=== PATIENT | female | born 1945 | race Caucasian/White ===

== ENCOUNTER 2016-05-18 18:33 | Inpatient (IN) | payer OTHER ==
[~2016-05-18] VITALS: Ht 162.6 cm; Wt 69.9 kg
[2016-05-18 18:39] VITALS: BP 102/66
[2016-05-18] MEDS ORDERED: NACL 0.9% 1,000 ML IV ONE (18:40)
--- NOTE | 2016-05-18 18:41 | NUR ---
PT [facility]IB[facility]. EMS STATES PT WENT TO THE BATHROOM AND ROOMMATE FOUND PT SITTING ON THE FLOOR AND LETHARGIC. PER EMS PT VOMITTED FRESH BLOOD AND PT IS PASSING OUT BLACK TARRY STOOL.PT WAS HYPOTENSIVE W/ A BP OF 80/40. PT HAS A HX OF ATRIAL FIB AND CURRENTLY ON BLOOD THINNER.PT IS AAOX3.BODY CHECKED DONE;SKIN IS INTACT W/ HEMATOMA ON RIGHT EYE AND RT FOREHEAD.W/ DRY WOUND ON BOTH ARMS.SIDERAILS UP;SAFETY PRECAUTION INSTITUTED.DR SOSA AT BEDSIDE.WILL CONTINUE TO MONITOR PT.
[2016-05-18] MEDS ORDERED: NACL 0.9% 500 ML IV ONE (18:50)
--- NOTE | 2016-05-18 18:50 | NUR ---
MEDTECH AT BEDSIDE
--- NOTE | 2016-05-18 19:04 | NUR ---
PROCESS DEVELOPER AT BEDSIDE
--- NOTE | 2016-05-18 19:13 | NUR ---
REPORT RECEIVED FROM BRIGITTE BOLIVAR
[2016-05-18 19:14] LABS: BASOPHILS # (AUTO) 0.4 K/uL (0.00-0.22); BASOPHILS % (AUTO) 2.4 % (0.0-2.0); EOSINOPHILS # (AUTO) 0.3 K/uL (0-0.4); EOSINOPHILS % (AUTO) 1.9 % (0.0-4.0); HEMATOCRIT 27.3 % (36-48); HEMOGLOBIN 8.8 g/dL (12.0-16.0); LYMPHOCYTES # (AUTO) 2.6 K/uL (2.5-16.5); LYMPHOCYTES % (AUTO) 17.7 % (20.5-51.1); MEAN CORPUSCULAR HEMOGLOBIN 31 pg (27-31); MEAN CORPUSCULAR HGB CONC 32 g/dL (33-37); MEAN CORPUSCULAR VOLUME 96 fL (80-94); MONOCYTES # (AUTO) 0.4 K/uL (0.8-1.0); MONOCYTES % (AUTO) 2.5 % (1.7-9.3); NEUTROPHILS # (AUTO) 11.1 K/uL (1.8-7.7); NEUTROPHILS % (AUTO) 75.5 % (42.2-75.2); PLATELET COUNT (AUTO) 193 K/uL (140-450); RED BLOOD CELL COUNT(AUTO) 2.85 MIL/uL (4.20-5.40); RED CELL DISTRIBUTION WIDTH 13.7 % (11.6-13.7); WHITE BLOOD COUNT (AUTO) 14.8 K/uL (4.8-10.8)
--- NOTE | 2016-05-18 19:24 | NUR ---
Dr. Ken evaluating patient at bedside.
--- NOTE | 2016-05-18 19:30 | NUR ---
ASSESSMENT OF PT. PT A/O, STATES SHE FEELS WEAK. PT ABLE TO DISCUSS HER MEDICAL HX AND HOW SHE HAS FELT THE LAST TWO DAYS.
[2016-05-18 19:33] LABS: PARTIAL THROMBOPLASTIN TIME 41.7 secs (22-35.6)
[2016-05-18 19:40] LABS: ALBUMIN 3.3 g/dL (3.4-5.0); ANION GAP 18.5 (8-16); CALCIUM 8.3 mg/dL (8.5-10.1); CARBON DIOXIDE 20.8 mmol/L (21-32); CREATININE 1.4 mg/dL (0.6-1.3); POTASSIUM 4.3 mmol/L (3.5-5.1); TOTAL BILIRUBIN 0.3 mg/dL (0.0-1.0); TOTAL PROTEIN, SERUM 6.2 g/dL (6.4-8.2)
--- NOTE | 2016-05-18 19:40 | NUR ---
BENDER PLACED. NO URINE OUTPUT AT THIS TIME. DR BALL MADE AWARE.
[2016-05-18 19:49] LABS: INR 5.4 (0.8-1.2); PROTHROMBIN TIME 53.4 secs (10.8-13.4)
--- NOTE | 2016-05-18 19:50 | NUR ---
DR BALL NOTIFIED OF CRITICAL LABS
--- NOTE | 2016-05-18 19:50 | NUR ---
PT TO CT VIA E[facility]IDA IN STABLE CONDITION
[2016-05-18 19:51] LABS: LACTIC ACID 4.1 mmol/L (0.4-2.0)
--- NOTE | 2016-05-18 20:04 | NUR ---
PT RETURN FROM CT
--- NOTE | 2016-05-18 20:15 | NUR ---
PT RETURNED FROM CT IN STABLE CONDITION
[2016-05-18] MEDS ORDERED: cefTRIAXone 2,000 MG in DEXTROSE 5% 100 ML IV ONE (20:25)
--- NOTE | 2016-05-18 20:26 | NUR ---
PT RETURNED FROM CT AND HAS LOW BP. DR BALL NOTIFIED AND 2ND NS BOLUS OF 500 WIDE OPEN STARTED. PT ANGELA. WELL. STILL NO URINE OUTPUT FOR PT.
--- NOTE | 2016-05-18 21:00 | NUR ---
ABX STARTED, PT A/O, APPROPRIATE AT THIS TIME.
[2016-05-18] MEDS ORDERED: cefTRIAXone 2,000 MG VIAL ONE (21:01)
[2016-05-18] MEDS ORDERED: LORazepam 2 MG/ML VIAL IVP PRN (21:05)
--- NOTE | 2016-05-18 21:05 | NUR ---
BP 84/35, DR BALL AWARE.
--- NOTE | 2016-05-18 21:32 | NUR ---
NO URINE OUTPUT AT THIS TIME.
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
--- NOTE | 2016-05-18 22:48 | NUR ---
REPORT GIVEN TO BRIGITTE MARTINEZ. TELE.
--- NOTE | 2016-05-18 22:48 | NUR ---
APatient will be admitted to care of DOVE. Admited to TELE. Will go to room 121B. Belongings list completed. Report to BRIGITTE MARTINEZ.
[2016-05-18] MEDS: NACL 0.9% 1,000 ML IV SCH (23:25)
[2016-05-18 23:33] VITALS: BP 111/92
--- NOTE | 2016-05-18 23:45 | NUR ---
CALL FROM MARITO IN LAB. CIRITCAL RESULT, PTS LACTIC ACID INCREASED TO 4.3. WILL MAKE MD AWARE.
--- NOTE | 2016-05-18 23:49 | NUR ---
PAGED MD BERNABE SENIOR ADVISORY FOR MD DOVE TO MAKE DAUGHERTY OF CRITICAL LAB RESULT. WAITING FOR CALL BACK.
--- NOTE | 2016-05-18 23:51 | NUR ---
MD BERNABE MADE AWARE OF INCREASED 2ND DRAW OF LACTIC ACID 4.3. NO ORDERS RECEIVED.
[2016-05-19] VITALS: BP 121/83
--- NOTE | 2016-05-19 00:25 | NUR ---
RADIOLOGY RESIDENT INFORMED ME THAT HR WAS ELEVATED 170'S. PT DENIED PAIN OR DISCOMFORT WHILE OBTAINING VS, THEN PT C/O NAUSEA. PT VOMITED ABOUT 300-400 DARK RED EMESIS. RADIOLOGY RESIDENT INFORMED ME THAT HR WENT UP TO 228.
--- NOTE | 2016-05-19 00:32 | NUR ---
PAGED MD BERNABE SPORTS JOURNALIST FOR MD DOVE. WAITING FOR CALL BACK. VS: HR 210, BP 121/83, O2 100% ON 2L O2 NC, RR 28, TEMP 99.
--- NOTE | 2016-05-19 00:35 | NUR ---
SPOKE WITH MD BERNABE, MADE AWARE OF SITUATION AND PTS HEART RATE AND VS. MD ORDERED STAT CBC. 1 UNIT FRESH FROZEN PLASMA. WILL FOLLOW UP.
[2016-05-19] MEDS: ONDANSETRON 4 MG/2 ML VIAL IVP PRN ×2 (00:53→19:42)
--- NOTE | 2016-05-19 01:01 | NUR ---
HR SUSTAINED BETWEEN 180-210. PAGED MD BERNABE HYDROGEN PLANT OPERATOR FOR MD DOVE TO MAKE AWARE. WAITING FOR CALL BACK.
--- NOTE | 2016-05-19 01:10 | NUR ---
SPOKE WITH MD BERNABE. MD AWARE OF SUSTAINED HR OF 180-210 SINCE PT VOMITED. MD ORDERED STAT EKG AND TROPONIN. WILL FOLLOW UP AND REPORT RESULTS WHEN AVAILABLE.
--- NOTE | 2016-05-19 01:19 | NUR ---
EKG ABNORMAL SHOWING A-FIB WITH RVR AT 184 BPM, ST AND T WAVE ABNORMALITIES. WAITING FOR CBC AND TROPONIN RESULTS TO REPORT RESULTS TO .
[2016-05-19 01:27] LABS: BASOPHILS # (AUTO) 0.3 K/uL (0.00-0.22); MONOCYTES # (AUTO) 0.7 K/uL (0.8-1.0)
--- NOTE | 2016-05-19 01:28 | NUR ---
VS: TEMP 98.7, O2 100% ON 2L O2 NC, HR 182, BP 101/50. PT AOX4, DENIES PAIN AND NAUSEA AT THIS TIME. NO SOB, NO SIGNS OF DISTRESS. IV SITES ASYMPTOMATIC, INTACT, IVF RUNNING TO LT AC. SAFETY MEASURES IN PLACE. CALL LIGHT WITHIN REACH. WILL CONTINUE TO MONITOR.
[2016-05-19 01:32] LABS: BASOPHILS % (AUTO) 1.7 % (0.0-2.0); EOSINOPHILS # (AUTO) 0.3 K/uL (0-0.4); EOSINOPHILS % (AUTO) 1.7 % (0.0-4.0); HEMATOCRIT 22.4 % (36-48); LYMPHOCYTES # (AUTO) 2.7 K/uL (2.5-16.5); LYMPHOCYTES % (AUTO) 17.4 % (20.5-51.1); MEAN CORPUSCULAR HEMOGLOBIN 31 pg (27-31); MEAN CORPUSCULAR HGB CONC 33 g/dL (33-37); MEAN CORPUSCULAR VOLUME 95 fL (80-94); MONOCYTES % (AUTO) 4.7 % (1.7-9.3); NEUTROPHILS # (AUTO) 11.3 K/uL (1.8-7.7); NEUTROPHILS % (AUTO) 74.5 % (42.2-75.2); PLATELET COUNT (AUTO) 187 K/uL (140-450); RED BLOOD CELL COUNT(AUTO) 2.35 MIL/uL (4.20-5.40); RED CELL DISTRIBUTION WIDTH 13.7 % (11.6-13.7)
[2016-05-19 01:49] LABS: HEMOGLOBIN 7.3 g/dL (12.0-16.0); WHITE BLOOD COUNT (AUTO) 15.3 K/uL (4.8-10.8)
--- NOTE | 2016-05-19 01:58 | NUR ---
PAGED MD BERNABE TO MAKE AWARE OF LAB AND EKG RESULTS. WAITING FOR CALL BACK.
--- NOTE | 2016-05-19 02:04 | NUR ---
SPOKE WITH MD BERNABE. MD MADE AWARE OF H&H AND EKG RESULT. MD ORDERED 5MG LOPRESSOR IVP, ONE UNIT PRBC, KEEP PT NPO, AND HOLD FFP. NO CHANGE IN IVF RATE. WILL COMPLETE ORDERS AND FOLLOW UP.
[2016-05-19] MEDS ORDERED: METOPROLOL 5 MG/5 ML VIAL IVP ONE (02:05)
--- NOTE | 2016-05-19 02:35 | NUR ---
VS: HR 132, BP 93/60 O2 100% ON 2L NC, RR 24, TEMP 98.3. NO SOB, NO SIGNS OF DISTRESS. PT IS AOX4, ABLE TO FOLLOW COMMANDS. PT DENIES ANY PAIN, SOB, NAUSEA, CHEST PAIN, OR DISCOMFORT AT THIS TIME. IV SITE ASYMPTOMATIC, INTACT, PATENT, IVF RUNNING. SAFETY MEASURES IN PLACE. CALL LIGHT WITHIN REACH. WILL CONTINUE TO MONITOR.
--- NOTE | 2016-05-19 03:10 | NUR ---
STARTED TRANSFUSION OF 1 UNIT PRBC PER MD ORDER. VS STABLE. NO SOB, NO SIGNS OF DISTRESS. IV SITES ASYMPTOMATIC, INTACT, PATENT, IVF AND BLOOD RUNNING. PT ON 2L O2 NC. PT DENIES PAIN OR DISCOMFORT AT THIS TIME.
--- NOTE | 2016-05-19 03:25 | NUR ---
VS STABLE. NO SOB, NO SIGNS OF DISTRESS. IV SITES ASYMPTOMATIC, INTACT, PATENT, IVF AND BLOOD RUNNING. PT ON 2L O2 NC. PT DENIES PAIN OR DISCOMFORT AT THIS TIME. PLAN OF CARE DISCUSSED WITH PT. SAFETY MEASURES IN PLACE. CALL LIGHT WITHIN REACH. WILL CONTINUE TO MONITOR.
[2016-05-19 04:00] VITALS: BP 95/68
--- NOTE | 2016-05-19 04:30 | NUR ---
VS STABLE. PT WITH NO OUTPUT IN BENDER SINCE ADMISSION, REPOSITIONED BENDER, NO OUTPUT. STRAIGHT CATHED PATIENT, 450 ML OUTPUT. REINSERTED BENDER, PT WITH OUTPUT. PT TOLERATED WELL. NO SOB, NO SIGNS OF DISTRESS IV SITES ASYMPTOMATIC, INTACT, IVF AND BLOOD RUNNING. PT DENIES PAIN OR DISCOMFORT AT THIS TIME. PT AOX4. PT ON 2L O2 NC. PLAN OF CARE DISCUSSED WITH PT. SAFETY MEASURES IN PLACE. CALL LIGHT WITHIN REACH. WILL CONTINUE TO MONITOR.
--- NOTE | 2016-05-19 05:50 | NUR ---
TRANSFUSION OF 1 UNIT PRBC DONE, PT TOLERATED WELL. NO ADV REACTIONS NOTED. VS STABLE. PT ON 3L O2 NC. IV SITES ASYMPTOMATIC, PATENT, INTACT, IVF RUNNING. PT DENIES PAIN, NAUSEA, OR DISCOMFORT AT THIS TIME. PLAN OF CARE DISCUSSED WITH PT. SAFETY MEASURES IN PLACE. CALL LIGHT WITHIN REACH. WILL CONTINUE TO MONITOR.
--- NOTE | 2016-05-19 07:15 | NUR ---
RECEIVED PATIENT REPORT. PATIENT AWAKE, ALERT AND ORIENTED. NO S/S OF DISTRESS NOTED. PATIENT DENIES PAIN. PATIENT ON 3L O2. NO ACTIVE VOMITING AT THIS MOMENT. IV LINE NOTED TO THE RIGHT AC SALINE LOCKED. IV TO THE LEFT AC INTACT WITH IVF INFUSING WELL. PATIENT ON TELE MONITORING. BED LOWERED WITH CALL LIGHT WITHIN REACH. WILL CONTINUE TO MONITOR
--- NOTE | 2016-05-19 07:18 | NUR ---
ENDORSED PT IN STABLE CONDITION TO NATHAN Mon RN. ALL NEEDS HAVE BEEN MET AT THIS TIME.
[2016-05-19 07:53] LABS: BASOPHILS # (AUTO) 0.1 K/uL (0.00-0.22); BASOPHILS % (AUTO) 1.1 % (0.0-2.0); EOSINOPHILS # (AUTO) 0.2 K/uL (0-0.4); EOSINOPHILS % (AUTO) 1.7 % (0.0-4.0); HEMATOCRIT 23.9 % (36-48); HEMOGLOBIN 7.8 g/dL (12.0-16.0); LYMPHOCYTES # (AUTO) 2.4 K/uL (2.5-16.5); LYMPHOCYTES % (AUTO) 17.4 % (20.5-51.1); MEAN CORPUSCULAR HEMOGLOBIN 30 pg (27-31); MEAN CORPUSCULAR HGB CONC 33 g/dL (33-37); MEAN CORPUSCULAR VOLUME 93 fL (80-94); MONOCYTES # (AUTO) 0.5 K/uL (0.8-1.0); MONOCYTES % (AUTO) 3.9 % (1.7-9.3); NEUTROPHILS # (AUTO) 10.4 K/uL (1.8-7.7); NEUTROPHILS % (AUTO) 75.9 % (42.2-75.2); PLATELET COUNT (AUTO) 158 K/uL (140-450); RED BLOOD CELL COUNT(AUTO) 2.58 MIL/uL (4.20-5.40); RED CELL DISTRIBUTION WIDTH 14.6 % (11.6-13.7); WHITE BLOOD COUNT (AUTO) 13.6 K/uL (4.8-10.8)
[2016-05-19 08:00] VITALS: BP 107/71
--- NOTE | 2016-05-19 08:30 | NUR ---
PATIENT HAS BEEN SCREENED AND CATEGORIZED MODERATE NUTRITION RISK. PATIENT WILL BE SEEN WITHIN 3-5 DAYS OF ADMISSION. 05/21/16-05/23/[address]
[2016-05-19 08:34] LABS: ALBUMIN 2.8 g/dL (3.4-5.0); ANION GAP 14.5 (8-16); CALCIUM 7.7 mg/dL (8.5-10.1); CARBON DIOXIDE 20.8 mmol/L (21-32); CREATININE 1.2 mg/dL (0.6-1.3); MAGNESIUM 1.7 mg/dL (1.8-2.4); POTASSIUM 4.3 mmol/L (3.5-5.1); TOTAL BILIRUBIN 0.3 mg/dL (0.0-1.0); TOTAL PROTEIN, SERUM 5.3 g/dL (6.4-8.2)
[2016-05-19] MEDS: NACL 0.9% 1,000 ML IV SCH ×2 (08:50→17:03)
--- NOTE | 2016-05-19 08:50 | NUR ---
PATIENT HAD A SMALL AMOUNT OF LIQUID BLACK TARRY STOOL
--- NOTE | 2016-05-19 09:37 | NUR ---
SPOKE WITH DR DOVE AND INFORMED HER ABOUT PATIENT'S BLOODY STOOL THIS MORNING AND THE HEMOGLOBIN AND HEMATOCRIT LEVEL POST TRANSFUSION. ALSO INFORMED ABOUT THE PATIENT'S BUN LEVEL OF 87. ORDERS TO TRANSFUSE 2 UNITS OF PRBC
--- NOTE | 2016-05-19 11:00 | NUR ---
CM NOTE INITIAL REVIEW SENT TO [facility] FAX# [phone] ATTN: LIU Geiger PH# [phone]
[2016-05-19] MEDS ORDERED: MAGNESIUM CHLORIDE 64 MG TABEC PO SCH (11:37)
--- NOTE | 2016-05-19 11:50 | NUR ---
FIRST UNIT OF FFP TRANSFUSION INITIATED
[2016-05-19 12:00] VITALS: BP 107/57
[2016-05-19] MEDS ORDERED: FUROSEMIDE 40 MG/4 ML VIAL IVP SCH (12:00)
--- NOTE | 2016-05-19 12:30 | NUR ---
FFP TRANSFUSION STILL IN PROGRESS. PATIENT ASLEEP. NO S/S OF DISTRESS NOTED
[2016-05-19] MEDS ORDERED: PANTOPRAZOLE 40 MG INJ VIAL IVP SCH (12:58)
[2016-05-19] MEDS ORDERED: PHYTONADIONE 10 MG/ML AMP SUBQ SCH (13:00)
--- NOTE | 2016-05-19 13:45 | NUR ---
FFP TRANSFUSION DONE. NO S/S OF DISTRESS NOTED. VITAL SIGNS WITHIN NORMAL LIMITS
--- NOTE | 2016-05-19 14:00 | NUR ---
PATIENT SEEN BY PHYSICAL THERAPIST
[2016-05-19] MEDS: FERRIC GLUCONATE 125 MG in NACL 0.9% 100 ML IV SCH (14:57)
[2016-05-19] MEDS: SENNA 8.6 MG TAB PO SCH ×2 (14:57→18:32)
[2016-05-19] MEDS: LACTULOSE 20 GM/30 ML UDC PO SCH ×4 (14:57→21:17)
[2016-05-19 16:00] VITALS: BP 123/64
[2016-05-19 17:16] LABS: APPEARANCE,URINE CLEAR (CLEAR); BILIRUBIN,URINE NEGATIVE (NEGATIVE); BLOOD, URINE 2+ (NEGATIVE); LEUKOCYTE ESTERASE ,URINE NEGATIVE (NEGATIVE); NITRITE, URINE NEGATIVE (NEGATIVE); PH,URINE 5.5 (5.0-9.0); PROTEIN,URINE NEGATIVE (NEGATIVE); UGLUCOSE NEGATIVE (NEGATIVE); UROBILINOGEN,URINE 0.2 EU/dL (0.2 - 1)
[2016-05-19 17:25] LABS: COLOR,URINE STRAW (YELLOW)
--- NOTE | 2016-05-19 17:25 | NUR ---
SECOND UNIT OF FFP TRANSFUSION INITIATED
[2016-05-19 17:28] LABS: BACTERIA,URINE RARE /HPF (None Seen); RBC,URINE 3-10 (FEW) /HPF (0-5); SQUAMOUS EPITHELIAL CELL,UR None Seen /LPF (0-3 (FEW)); WBC,URINE 0-5 (RARE) /HPF (0-5)
[2016-05-19] MEDS ORDERED: BOWEL EVACUANT DRINK 4,000 ML PDS PO SCH (18:00)
--- NOTE | 2016-05-19 18:00 | NUR ---
SECOND UNIT OF FFP TRANSFUSION STILL IN PROGRESS. NO S/S OF DISTRESS NOTED
--- NOTE | 2016-05-19 18:34 | NUR ---
PATIENT VOMITED 300ML OF COFFEE GROUND EMESIS AFTER TAKING LACTULOSE. PATIENT STATES THE MEDICATIONS WAS "ICKY"
--- NOTE | 2016-05-19 18:45 | NUR ---
SECOND UNIT OF FFP TRANSFUSION DONE
--- NOTE | 2016-05-19 19:15 | NUR ---
PAGED DR DOVE TO REPORT ABOUT THE PATIENT'S EPISODE OF VOMITING AND THE SUDDEN INCREASE OF PATIENT'S HEART RATE. WAITING FOR CALL BACK
--- NOTE | 2016-05-19 19:23 | NUR ---
RECEIVED PT REPORT FROM NATHAN Esteves RN AT BEDSIDE FOR CONTINUITY OF CARE. PT NOTED STABLE.
--- NOTE | 2016-05-19 19:27 | NUR ---
SHIFT ASSESSMENT DONE AT THIS TIME. PT HEART RATE NOTED ELEVATED AT 180'S-190'S, DR. SRINIVASA MAK. PT IS A/O X4, ABLE TO VERBALIZE NEEDS AND FOLLOW COMMANDS. ALL OTHER VITAL SIGNS ARE STABLE, PT ON 3L VIA NASAL CANNULA, OXYGEN SATURATION AT 100%. NO SOB NOTED. PT DENIES NAUSEA AND VOMITING AT THIS TIME. ALSO DENIES CHEST PAIN OR FEELING SOB. LUNG SOUNDS ARE CLEAR, BOWEL SOUNDS ACTIVE. IV ACCESS NOTED TO LEFT AC #20G, PATENT AND INTACT. ALSO RT AC #22G, PATENT AND INTACT. NOTED PT TO HAVE MULTIPLE BRUISES TO BUE AND SMALL DRY SCABS TO BOTH LT AND RT FA. ALL OTHER SKIN INTACT. NO SWELLING NOTED. SCD'S IN PLACE. DISCUSSED PLAN OF CARE WITH PT, VERBALIZED UNDERSTANDING. ALL NEEDS MET. WILL CONTINUE TO MONITOR. SAFETY PRECAUTIONS IMPLEMENTED.
--- NOTE | 2016-05-19 19:30 | NUR ---
ENDORSED CONTINUITY OF CARE TO THE NIGHT NURSE
--- NOTE | 2016-05-19 19:33 | NUR ---
SPOKE WITH DR BERNABE ON THE PHONE AND REPORTED ABOUT THE PATIENT'S HEART RATE AND VOMITING. DR BERNABE ORDERED 5MG LOPRESSOR IV X 1
--- NOTE | 2016-05-19 19:34 | NUR ---
PER AM SHIFT NURSE DR. SRINIVASA ARNETT AWARE OF PT HR IN 180'S. NEW ORDER RECEIVED. WILL ADMINISTER PER ORDERS, SEE eMAR.
--- NOTE | 2016-05-19 19:42 | NUR ---
PT FEELING NAUSEATED, ADMINISTERED ZOFRAN PER ORDERS, SEE eMAR.
--- NOTE | 2016-05-19 19:44 | NUR ---
PT RESP ASSESSMENT DONE, PT ON 3LPM NC SP02 100%, NO SOB OR RESP DISTRESS NOTED. HHNTX NOT INDICATED AT THIS TIME.
[2016-05-19] MEDS ORDERED: METOPROLOL 5 MG/5 ML VIAL IVP SCH (19:45)
--- NOTE | 2016-05-19 19:56 | NUR ---
ADMINISTERED PT IVP METOPROLOL PER ORDERS, SEE eMAR.
[2016-05-19 20:00] VITALS: BP 123/78
[2016-05-19] MEDS: PANTOPRAZOLE 40 MG TABEC PO SCH (21:17)
[2016-05-19] MEDS: ACETAMINOPHEN 325 MG TAB PO PRN (21:51)
[2016-05-19] MEDS ORDERED: MAGNESIUM CITRATE 300 ML BTL PO SCH (22:00)
--- NOTE | 2016-05-19 22:00 | NUR ---
RESTARTED NEW IV TO LEFT FA, OLD LEFT AC IV LEAKING.
--- NOTE | 2016-05-19 22:10 | NUR ---
PAGED DR. Dirk FITZGERALD TO MAKE AWARE OF PT NON COMPLIANT WITH BOWEL EVAC. FOR TOMORROW'S PROCEDURE.
--- NOTE | 2016-05-19 22:45 | NUR ---
STARTED PT ON FIRST UNIT OF PRBC'S.
--- NOTE | 2016-05-19 23:00 | NUR ---
NO REACTION NOTED TO BLOOD TRANSFUSION. VSS. PT DENIES N/V/D, AND CP. NO SOB NOTED.
--- NOTE | 2016-05-19 23:43 | NUR ---
PAGED DR. BERNABE TO MAKE AWARE OF PT HR STILL IN 150-160'S.
--- NOTE | 2016-05-19 23:54 | NUR ---
MADE DR. BERNABE AWARE OF PT LOOKS PALE, HAD DARK LARGE LOOSE STOOL AND LATEST VITAL SIGNS, HR RATE STILL IN 150-160'S AND LOW BP OF 97/57. MADE HER AWARE OF PT HAVING PRBC'S AT THIS TIME. ALSO SUGGESTION MADE FOR TRANSFER TO ICU. PER DR. BERNABE, GIVE AMIODARONE 200MG PO ONCE NOW AND IF CONDITION DOES NOT IMPROVED TRANSFER PT TO ICU. Addendum: 05/20/16 at 0250 by Neli De Anda RN DR. BERNABE ALSO AWARE OF PT HAS NO ELECTRONIC LAB TECHNICIAN ON CASE.
[2016-05-20] VITALS (12 sets, daily range): BP systolic 91–108; BP diastolic 44–68
[2016-05-20] MEDS ORDERED: AMIODARONE 200 MG TAB PO ONE
--- NOTE | 2016-05-20 00:15 | NUR ---
PT HR NOTED DECREASED, FELL DOWN TO 100'S BPM. HELD AMIODARONE. WILL CONTINUE TO MONITOR.
--- NOTE | 2016-05-20 00:15 | NUR ---
DR. Dirk FITZGERALD, GI PHYCISIAN AWARE OF PT REFUSED LACTULOSE AND GOLYTELY AND HAS NOT FINISHED. PER DR. Dirk FITZGERALD PT TO INCREASE ORAL FLUID INTAKE.
[2016-05-20] MEDS: ONDANSETRON 4 MG/2 ML VIAL IVP PRN (00:28)
--- NOTE | 2016-05-20 00:28 | NUR ---
PT VOMITING COFFEE GROUND EMESIS, NOTED 350ML. ADMINISTERED ZOFRAN PER ORDERS. VSS. WILL CONTINUE TO MONITOR PT.
--- NOTE | 2016-05-20 02:00 | NUR ---
PRBC'S DONE AT THIS TIME, VSS. PT HR NOTED 91 BPM. NO ACUTE DISTRESS.
[2016-05-20] MEDS: NACL 0.9% 1,000 ML IV SCH ×2 (02:17→14:10)
--- NOTE | 2016-05-20 03:00 | NUR ---
SECOND UNIT STARTED AT THIS TIME.
--- NOTE | 2016-05-20 03:15 | NUR ---
NO ADVERSE REACTION NOTED TO SECOND UNIT OF PRBC'S. PT VSS. NO DISTRESS NOTED.
--- NOTE | 2016-05-20 03:45 | NUR ---
VS REMAIN STABLE. HR 86, O2 100% AND NO DISTRESS NOTED. NASAL CANNULA STILL IN PLACE.
--- NOTE | 2016-05-20 07:20 | NUR ---
ENDORSED PT TO DANISH BRIGGS FOR CONTINUITY OF CARE AT PT BEDSIDE. PT STABLE, NO DISTRESS.
--- NOTE | 2016-05-20 07:21 | NUR ---
RECEIVED PT FROM THE EXECUTIVE OFFICE MANAGER NURSE AT BEDSIDE. PT IS ALERT AND AWAKE. I INTRODUCED MYSELF. UPDATED THE BOARD. NOTED THE SHE IS ON NC 3L O2. NOTED THAT SHE HAS 2 IV L FA 22G NS 100ML/HR AND R AC 20G SL. NOTED THE BUE BRUISING AND NOTED THE BRUISE ON HER R FOREHEAD. S/P FALL. NOTED SLIGHT EDEMA IN FINGERS AND TOES. PER EXECUTIVE OFFICE MANAGER NURSE, SHE FINISHED HER LAST PRBC'S AT 6AM. ORDERED CBC FOR 8AM. AWAITING LAB RESULTS. NO SIGNS OF DISTRESS. NO COMPLAINTS AT THIS TIME. WILL CONTINUE TO MONITOR PT.
[2016-05-20] MEDS: ALBUTEROL 0.083% 2.5 MG/3 ML NEBU IH PRN ×2 (08:18→13:49)
--- NOTE | 2016-05-20 08:18 | NUR ---
AWAKE AND ALERT RESPONSIVE TO ROCK CUTTER VERBAL COMMANDS SATURATION 100% ON SUPPLEMENTAL OXYGEN AT 3 LPM VIA NC PATIENT C/O OF NASAL DRYNESS WITH SUPPLEMENTAL OXYGEN USE POST HHN PRN THERAPY TITRATED FIO2 TO 2 LPM DANISH/RN NOTIFIED ADDED HUMIDIFIER
[2016-05-20] MEDS ORDERED: METOPROLOL 25 MG TAB JT SCH (09:00)
[2016-05-20] MEDS: LACTULOSE 20 GM/30 ML UDC PO SCH (09:00)
[2016-05-20] MEDS: SENNA 8.6 MG TAB PO SCH ×2 (09:00→20:31)
[2016-05-20] MEDS: PANTOPRAZOLE 40 MG TABEC PO SCH ×2 (09:08→20:30)
--- NOTE | 2016-05-20 09:10 | NUR ---
ADMINISTERED MORNING MEDS. HELD THE LACTULOSE AND SENNA BC SHE HAD LOOSE STOOLS THIS MORNING. SHE TOLERATED WELL. PT HAS NO OTHER COMPLAINTS EXCEPT A LITTLE NAUSEA. WILL SEE WHEN LAST ZOFRAN WAS GIVEN. WILL CONTINUE TO MONITOR PT.
--- NOTE | 2016-05-20 09:21 | NUR ---
RECEIVED PT FROM THE DERRICK BOAT OPERATOR NURSE AT BEDSIDE. PT IS ALERT AND AWAKE. I INTRODUCED MYSELF. UPDATED THE BOARD. NOTED THE SHE IS ON NC 3L O2. NOTED THAT SHE HAS 2 IV L FA 22G NS 100ML/HR AND R AC 20G SL. NOTED THE BUE BRUISING AND NOTED THE BRUISE ON HER R FOREHEAD. S/P FALL. NOTED SLIGHT EDEMA IN FINGERS AND TOES. PER DERRICK BOAT OPERATOR NURSE, SHE FINISHED HER LAST PRBC'S AT 6AM. ORDERED CBC FOR 8AM. AWAITING LAB RESULTS. NO SIGNS OF DISTRESS. NO COMPLAINTS AT THIS TIME. WILL CONTINUE TO MONITOR PT. Addendum: 05/20/16 at 1021 by Luiza Mendes RN 0721 NOT 0921 BRIGITTE.
[2016-05-20 09:28] LABS: ALBUMIN 2.6 g/dL (3.4-5.0); ANION GAP 9.5 (8-16); CALCIUM 7.4 mg/dL (8.5-10.1); CARBON DIOXIDE 27.4 mmol/L (21-32); POTASSIUM 3.9 mmol/L (3.5-5.1); TOTAL BILIRUBIN 0.2 mg/dL (0.0-1.0); TOTAL PROTEIN, SERUM 4.9 g/dL (6.4-8.2)
[2016-05-20 09:37] LABS: BASOPHILS # (AUTO) 0.2 K/uL (0.00-0.22); BASOPHILS % (AUTO) 1.3 % (0.0-2.0); EOSINOPHILS # (AUTO) 0.1 K/uL (0-0.4); LYMPHOCYTES # (AUTO) 2.7 K/uL (2.5-16.5); LYMPHOCYTES % (AUTO) 21.4 % (20.5-51.1); MEAN CORPUSCULAR HEMOGLOBIN 30 pg (27-31); MEAN CORPUSCULAR HGB CONC 33 g/dL (33-37); MEAN CORPUSCULAR VOLUME 90 fL (80-94); MONOCYTES % (AUTO) 7.6 % (1.7-9.3); NEUTROPHILS # (AUTO) 8.5 K/uL (1.8-7.7); NEUTROPHILS % (AUTO) 68.7 % (42.2-75.2); PLATELET COUNT (AUTO) 101 K/uL (140-450); RED CELL DISTRIBUTION WIDTH 16.3 % (11.6-13.7); WHITE BLOOD COUNT (AUTO) 12.5 K/uL (4.8-10.8)
--- NOTE | 2016-05-20 09:55 | NUR ---
LAB CALLED WITH CRITICAL REPORT: BUN 63 LAB CALLED AGAIN WITH CRITICAL REPORT: HGB 6.[address] DOVE [address] Ya FITZGERALD RE PT.
[2016-05-20 09:57] LABS: HEMATOCRIT 19.9 % (36-48); HEMOGLOBIN 6.5 g/dL (12.0-16.0)
[2016-05-20] MEDS ORDERED: fentaNYL 0.05 MG/ML VIAL ONE (10:25)
[2016-05-20] MEDS ORDERED: MIDAZOLAM 2 MG/2 ML VIAL ONE (10:26)
[2016-05-20] MEDS ORDERED: diphenhydrAMINE 50 MG/ML VIAL ONE (10:26)
--- NOTE | 2016-05-20 10:30 | NUR ---
CM NOTE CONCURRENT REVIEW FAXED TO [facility] / FAX# [phone], ATTN; LIU [phone]
--- NOTE | 2016-05-20 10:34 | NUR ---
SPOKE TO DR. DOVE. D/T LOW H/H, ORDERED 2 UNITS OF PRBC'S AND LASIX 20 MG IV X 1. SHE ASKED ME TO CALL DR. FITZGERALD ABOUT HER BOWEL PREP AND EGD. ALREADY PAGED. WILL PUT IN TELEPHONE ORDER AND WILL ADMINISTER SOON IT BECOMES AVAILABLE.
--- NOTE | 2016-05-20 10:45 | NUR ---
DR. FITZGERALD CALLED BACK. EXPLAINED THE H/H AND BUN. EXPLAINED SHE REFUSED THE BOWEL PREP. HE ORDERED REGLAN 10MG IVP AND MAG CITRATE 1 BOTTLE NOW. WILL ADMINISTER.
[2016-05-20] MEDS ORDERED: FUROSEMIDE 20 MG/2 ML VIAL IVP SCH (10:52)
[2016-05-20] MEDS ORDERED: MAGNESIUM CITRATE 300 ML BTL PO SCH (10:54)
[2016-05-20] MEDS ORDERED: METOCLOPRAMIDE 10 MG/2 ML INJ VIAL IVP SCH (10:55)
[2016-05-20 11:09] LABS: INR 1.7 (0.8-1.2); PROTHROMBIN TIME 16.3 secs (10.8-13.4)
--- NOTE | 2016-05-20 11:45 | NUR ---
DR. PRICE WAS HERE FOR CONSULT.
--- NOTE | 2016-05-20 11:55 | NUR ---
P.T. NOTES CHART REVIEWED, BUT WAS UNABLE TO SEE PATIENT FOR P.T. AT HER BEDSIDE DUE TO M.D. EXAMINING HER AND PER RN, TO COME BACK LATER. RETURNED BACK TO HER ROOM BUT PATIENT WAS JUST TAKEN TO O.R. FOR EGD PROCEDURE. PLAN: CONTINUE P.T. PER PLAN OF CARE TOMORROW. (PVEX1).
--- NOTE | 2016-05-20 11:57 | NUR ---
OR NURSES TOOK PT TO THE OR FOR EGD PROCEDURE. PT IS IN A GURNEY ACCOMPANIED BY 3 OR NURSES. WILL SEE HER WHEN SHE GETS BACK.
--- NOTE | 2016-05-20 13:35 | NUR ---
PT RETURNED TO THE FLOOR W/ THE OR NURSES. PT V/S 91/67; 68; 98%. PROCEDURE THAT WAS DONE: EGD W/ BX AND CAUTERY W/ CLIP. PT HAD GASTRITIS, BLEEDING GASTRIC ULCER WHICH THEY CAUTERIZED, DIVERTICULOSIS; HEMORRHOID. PT IS DOING WELL. NO COMPLAINTS. NO SIGNS OF DISTRESS. THE SEASONAL PACKAGE HANDLER IS CLEANING HER UP NOW AND CHANGING SHEETS. ONCE SHE IS SETTLED, I WILL START ON HER BLOOD TRANSFUSION.
[2016-05-20] MEDS: FERRIC GLUCONATE 125 MG in NACL 0.9% 100 ML IV SCH (14:10)
[2016-05-20] MEDS ORDERED: fentaNYL 0.05 MG/ML VIAL IVP ONE (14:15)
[2016-05-20] MEDS ORDERED: MIDAZOLAM 2 MG/2 ML VIAL IVP ONE (14:15)
--- NOTE | 2016-05-20 15:51 | NUR ---
ATTEMPTED TO START ANOTHER IV FOR THE BLOOD TRANSFUSION BC THE ONE WE HAVE NOW IS ONLY 22G. RAMY ATTEMPTED 3 X. WILL ASK CHARGE NURSE TO ATTEMPT A NEW START. PT TOLERATED VERY WELL. SHE IS NOW VISITING WITH A FRIEND.
--- NOTE | 2016-05-20 16:50 | NUR ---
STARTED THE 1ST UNIT OF BLOOD TRANSFUSION. PER BRETT, IF PT IS A HARDSTICK, WE CAN JUST USE 22G IV SITE. FARIBA, 2ND NURSE VERIFIED AND STARTED THE TRANSFUSION. PT'S V/S IS WITHIN NORMAL LIMITS. WILL CONTINUE TO MONITOR PT.
--- NOTE | 2016-05-20 17:05 | NUR ---
V/S 98.6F, 99/64, 42, R 18, 91%. PULSE IS LOW BUT PT IS FEELING FINE. ASYTOMATIC. WILL CONTINUE TO MONITOR PT.
[2016-05-20] MEDS: FERROUS SULFATE 325 MG TABEC PO SCH (17:06)
--- NOTE | 2016-05-20 17:20 | NUR ---
VS:98.8F,94 HR,18 R, 106/67, 100% PT TOLERATING WELL. PT EATING DINNER AND ON THE PHONE. ALL SAFETY MEASURES IN PLACE. WILL CONTINUE TO MONITOR.
--- NOTE | 2016-05-20 19:15 | NUR ---
ENDORSED PT TO THE ORCHARD SPRAYER NURSE AT BEDSIDE FOR CONTINUITY OF CARE. PT IS IN SLEEPING. BLOOD STILL INFUSING. PT IS STABLE.
--- NOTE | 2016-05-20 19:16 | NUR ---
RECEIVED REPORT FROM DAY SHIFT NURSEDANISH RN. PATIENT IS ALERT AND AWAKE, DENIES PAIN AT THIS TIME. PATIENT ON TELE MONITOR, NO EDEMA NOTED. ON NASAL CANNULA AT 2LPM, NO S/S OF RESPIRATORY DISTRESS/DISCOMFORT NOTED. SKIN IS COOL TO TOUCH, BRUISES TO BUE AND RIGHT FOREHEAD NOTED. IV SITE SI PATENT AND INTACT, BLOOD TRANSFUSION ON GOING. BENDER CATHETER IN PLACED, INDWELLING WELL. SCD IN PLACED. PLAN OF CARE DISCUSSED, VERBALIZED UNDERSTANDING. SAFETY MEASURES CHECKED, CALL LIGHT WITHIN REACH. WILL CONTINUE TO MONITOR.
--- NOTE | 2016-05-20 20:00 | NUR ---
1ST BAG OF PRBC DONE. PATIENT IS STABLE. V/S IS WNL. HAS NO S/S OF RESPIRATORY DISTRESS/DISCOMFORT NOTED. WILL HANG THE 2ND BAG.
--- NOTE | 2016-05-20 20:20 | NUR ---
2ND BAG OF PRBC STARTED . PRE BLOOD TRANSFUSION VITAL SIGNS WAS TAKEN, WNL. NO S/S OF RESPIRATORY DISTRESS/DISCOMFORT NOTED. 2ND SHIELD CLEANER WITH THE CHARGE NURSE, NADIR WAS DONE. WILL CONTINUE TO MONITOR.
--- NOTE | 2016-05-20 20:32 | NUR ---
DUE MEDS GIVEN. PT TOLERATED WELL.
--- NOTE | 2016-05-20 23:52 | NUR ---
BLOOD TRANSFUSION DONE. NO S/S OF ADVERSE REACTION. V/S CHECKED AND STABLE. NO S/S OF RESPIRATORY DISTRESS/DISCOMFORT NOTED.
--- NOTE | 2016-05-21 02:25 | NUR ---
ENDORSED PT TO BRIGITTE ELI FOR CONTINUITY OF CARE. PT IS IN STABLE CONDITION.
--- NOTE | 2016-05-21 02:26 | NUR ---
RECEIVED PT REPORT FROM ZAKI BRIGGS FOR PT CONTINUITY OF CARE. PT IN BED, SLEEPING. NO ACUTE S/S OF DISTRESS. PT ABLE TO WAKE AND FOLLOW COMMAND. WILL CONTINUE TO MONITOR, CALL LIGHT WITHIN REACH.
[2016-05-21] MEDS: NACL 0.9% 1,000 ML IV SCH ×2 (03:08→09:35)
[2016-05-21 04:00] VITALS: BP 93/56
--- NOTE | 2016-05-21 04:20 | NUR ---
PT VITAL SIGNS REMAIN STABLE. PT DENIES PAIN AND NAUSEA. NO SOB OR RESPIRATORY DISTRESS NOTED. CALL LIGHT WITHIN REACH.
[2016-05-21 05:08] VITALS: BP 100/69
[2016-05-21 06:03] LABS: BASOPHILS # (AUTO) 0.2 K/uL (0.00-0.22); BASOPHILS % (AUTO) 1.5 % (0.0-2.0); EOSINOPHILS # (AUTO) 0.1 K/uL (0-0.4); EOSINOPHILS % (AUTO) 0.5 % (0.0-4.0); HEMATOCRIT 26.6 % (36-48); HEMOGLOBIN 8.9 g/dL (12.0-16.0); LYMPHOCYTES # (AUTO) 2.9 K/uL (2.5-16.5); LYMPHOCYTES % (AUTO) 24.3 % (20.5-51.1); MEAN CORPUSCULAR HEMOGLOBIN 30 pg (27-31); MEAN CORPUSCULAR HGB CONC 33 g/dL (33-37); MEAN CORPUSCULAR VOLUME 89 fL (80-94); MONOCYTES # (AUTO) 0.9 K/uL (0.8-1.0); MONOCYTES % (AUTO) 7.4 % (1.7-9.3); NEUTROPHILS # (AUTO) 7.8 K/uL (1.8-7.7); NEUTROPHILS % (AUTO) 66.3 % (42.2-75.2); PLATELET COUNT (AUTO) 114 K/uL (140-450); RED CELL DISTRIBUTION WIDTH 16.3 % (11.6-13.7); WHITE BLOOD COUNT (AUTO) 11.9 K/uL (4.8-10.8)
[2016-05-21 06:33] LABS: INR 1.2 (0.8-1.2); PROTHROMBIN TIME 11.4 secs (10.8-13.4)
[2016-05-21 06:53] LABS: ALBUMIN 2.8 g/dL (3.4-5.0); ANION GAP 6.6 (8-16); CALCIUM 7.7 mg/dL (8.5-10.1); CREATININE 0.8 mg/dL (0.6-1.3); POTASSIUM 3.6 mmol/L (3.5-5.1); TOTAL BILIRUBIN 0.4 mg/dL (0.0-1.0); TOTAL PROTEIN, SERUM 5.2 g/dL (6.4-8.2)
--- NOTE | 2016-05-21 07:12 | NUR ---
ENDORSED PT TO BOB RN IN STABLE CONDITION AT BEDSIDE FOR CONTINUITY OF CARE. NO DISTRESS NOTED AT THIS TIME.
--- NOTE | 2016-05-21 07:13 | NUR ---
RECEIVED REPORT FROM TRAIN ENGINEER NURSE. PT IS AAOX4, DENIES PAIN/DISCOMFORT AT THIS TIME. REDNESS TO SACRUM NOTED. IV IS PATENT AND FLOWING. BENDER IS FLOWING VIA GRAVITY. PT IS ON ROOM AIR, VITALS STABLE. CALL LIGHT WITHIN REACH. WILL CONTINUE TO MONITOR.
[2016-05-21] MEDS: ALBUTEROL 0.083% 2.5 MG/3 ML NEBU IH PRN ×2 (07:26→18:52)
[2016-05-21 08:00] VITALS: BP 109/77
[2016-05-21] MEDS: PANTOPRAZOLE 40 MG TABEC PO SCH (08:45)
[2016-05-21] MEDS: FERROUS SULFATE 325 MG TABEC PO SCH ×3 (08:45→16:14)
--- NOTE | 2016-05-21 09:15 | NUR ---
PT ANGELA MEDS WELL.
[2016-05-21] MEDS: ONDANSETRON 4 MG/2 ML VIAL IVP PRN ×2 (11:16→20:11)
--- NOTE | 2016-05-21 11:27 | NUR ---
PT C/O NAUSEA. MEDICATED PRESCRIBED.
[2016-05-21 12:00] VITALS: BP 99/61
--- NOTE | 2016-05-21 12:28 | NUR ---
UNCONTROLLED A FIB ON TELE MONITOR, REPORT TO DR. DOVE. SEE MED ORDERS.
[2016-05-21] MEDS ORDERED: DILTIAZEM 25 MG/5 ML VIAL IVP ONE (12:30)
--- NOTE | 2016-05-21 12:54 | NUR ---
PAGED Ander NAGY, AWAITING CALLBACK.
[2016-05-21] MEDS ORDERED: DILTIAZEM 25 MG/5 ML VIAL IVP PRN ×2 (13:00→16:00)
--- NOTE | 2016-05-21 13:00 | NUR ---
ORDERS RECEIVED, AWARE OF DECREASED BP. OK TO ADMINISTER PER León NAGY
[2016-05-21] MEDS: FERRIC GLUCONATE 125 MG in NACL 0.9% 100 ML IV SCH (13:24)
--- NOTE | 2016-05-21 13:40 | NUR ---
P.T. NOTES PT FOUND AWAKE, ALERT, STATES SHE HAS BEEN NAUSEOUS BUT DENIES OF VOMITTING. VS: TAKEN AND MEASURED FOLLOW: HR: 139-150BPM, BP: 91/61MMHG SPO2 ON ROOM AIR AT 98%, THIS P.T. WENT TO TELE MONITOR AND TECH SAID HER HR HAS BEEN HIGH AND NURSE GAVE HER CARDIZEM ALREADY AND IS AWARE. PT DENIES OF ANY CHEST PAIN NOR H/A BUT STATES SHE FEELS TIRED TO DO ANYTHING WITH P.T. "I KNOW I NEED TO WALK AND I WANT TO BUT NOT JUST NOW." BY THE TIME THIS P.T. REPORTED TO NRSG SHE STATES, HR HAS BEEN MORE CONTROLLED BUT PT HAS BEEN LETHARGIC, OKAY TO HOLD FOR TODAY. PREM
--- NOTE | 2016-05-21 13:41 | NUR ---
PT SEEN AND EVAL BY PHYS THERAPY. Addendum: 05/21/16 at 1502 by Kelsey Love RN PHYS THERAPY HELD DUE TO INCREASED HR AND LOW BP.
--- NOTE | 2016-05-21 14:13 | NUR ---
CM NOTE CONCURRENT REVIEW FAXED TO [facility] / FAX# [phone], ATTN; LIU [phone]
--- NOTE | 2016-05-21 15:02 | NUR ---
PHYS THERAPY HELD DUE TO INCREASED HR AND LOW BP.
[2016-05-21 16:00] VITALS: BP 97/46
--- NOTE | 2016-05-21 16:14 | NUR ---
PT ANGELA MEDS WELL.
[2016-05-21 16:31] LABS: HEMATOCRIT 29.3 % (36-48); HEMOGLOBIN 10.2 g/dL (12.0-16.0)
[2016-05-21] MEDS ORDERED: KCL 20 MEQ/WATER INJ PREMIX 100 ML IV SCH (16:41)
--- NOTE | 2016-05-21 16:48 | NUR ---
PER DR. HILARIO, NEVA TRI PHASE BONE SCAN TO BE COMPLETED. Addendum: 05/21/16 at 1802 by Kelsey Love RN ERROR.
[2016-05-21] MEDS: ACETAMINOPHEN 325 MG TAB PO PRN (17:19)
--- NOTE | 2016-05-21 18:30 | NUR ---
PT SEEN BY León NAGY
--- NOTE | 2016-05-21 19:15 | NUR ---
ENDORSED TO ELECTRICAL HIGH TENSION TESTER NURSE FOR CONTINUITY OF CARE IN STABLE CONDITION.
--- NOTE | 2016-05-21 19:17 | NUR ---
RECEIVED PT IN STABLE CONDITION FROM HOME SHIELDS RN. NO SOB, NO SIGNS OF DISTRESS. PT IS AOX4, ON BEDREST WITH GENERALIZED WEAKNESS. VS STABLE ON ROOM AIR. IV TO LT FA 22G PATENT, ASYMPTOMATIC, INTACT, PATENT, IVF RUNNING. PT WITH SCABS AND BRUISING TO BUE, BRUISE TO MEGAN-ORBITAL AREA. PT DENIES PAIN AT THIS TIME, PT C/O NAUSEA, WILL MEDICATE PER MD ORDER. PT WITH BENDER IN PLACE DRAINING TO GRAVITY. PLAN OF CARE DISCUSSED WITH PT. SAFETY MEASURES IN PLACE. CALL LIGHT WITHIN REACH. WILL CONTINUE TO MONITOR.
[2016-05-21 20:00] VITALS: BP 100/51
[2016-05-21] MEDS: SOTALOL 80 MG TAB PO SCH (20:11)
[2016-05-21] MEDS: SENNA 8.6 MG TAB PO SCH (20:12)
--- NOTE | 2016-05-21 20:12 | NUR ---
PT TOLERATED DUE MEDS AND ZOFRAN WELL. NO SOB, NO SIGNS OF DISTRESS. PT DENIES PAIN AT THIS TIME. IV SITE ASYMPTOMATIC, INTACT, PATENT, IVF RUNNING. PT REQUESTED A SOFT SNACK, PROVIDED PT WITH PEARS. PLAN OF CARE DISCUSSED WITH PT. SAFETY MEASURES IN PLACE. CALL LIGHT WITHIN REACH. WILL CONTINUE TO MONITOR.
--- NOTE | 2016-05-21 22:08 | NUR ---
PT C/O NAUSEA, OFFERED PT ICE CHIPS SINCE ZOFRAN IS NOT DUE YET, TOLD PT I WOULD BRING BY ZOFRAN WHEN IT WAS DUE IF SHE STILL FELT NAUSEOUS, PT VERBALIZED UNDERSTANDING. PT DENIES PAIN AT THIS TIME. PLAN OF CARE DISCUSSED WITH PT. SAFETY MEASURES IN PLACE. CALL LIGHT WITHIN REACH. WILL CONTINUE TO MONITOR.
[2016-05-22] VITALS: BP 108/64
--- NOTE | 2016-05-22 00:36 | NUR ---
VS STABLE ON ROOM AIR. NO SOB, NO SIGNS OF DISTRESS. IV SITE ASYMPTOMATIC, INTACT, PATENT, IVF RUNNING. PT DENIES PAIN OR NAUSEA AT THIS TIME. PLAN OF CARE DISCUSSED WITH PT. SAFETY MEASURES IN PLACE. CALL LIGHT WITHIN REACH. WILL CONTINUE TO MONITOR.
--- NOTE | 2016-05-22 02:30 | NUR ---
PT ASLEEP IN BED. NO SOB, NO SIGNS OF DISTRESS. IV SITE ASYMPTOMATIC, INTACT, PATENT, IVF RUNNING. SAFETY MEASURES IN PLACE. CALL LIGHT WITHIN REACH. WILL CONTINUE TO MONITOR.
[2016-05-22 04:00] VITALS: BP 100/66
[2016-05-22 05:49] LABS: BASOPHILS # (AUTO) 0.1 K/uL (0.00-0.22); BASOPHILS % (AUTO) 1.5 % (0.0-2.0); EOSINOPHILS # (AUTO) 0.1 K/uL (0-0.4); EOSINOPHILS % (AUTO) 1.1 % (0.0-4.0); HEMATOCRIT 25.5 % (36-48); HEMOGLOBIN 8.6 g/dL (12.0-16.0); LYMPHOCYTES # (AUTO) 2.7 K/uL (2.5-16.5); LYMPHOCYTES % (AUTO) 30.5 % (20.5-51.1); MEAN CORPUSCULAR HEMOGLOBIN 30 pg (27-31); MEAN CORPUSCULAR HGB CONC 34 g/dL (33-37); MEAN CORPUSCULAR VOLUME 91 fL (80-94); MONOCYTES # (AUTO) 0.7 K/uL (0.8-1.0); MONOCYTES % (AUTO) 8.4 % (1.7-9.3); NEUTROPHILS # (AUTO) 5.1 K/uL (1.8-7.7); NEUTROPHILS % (AUTO) 58.5 % (42.2-75.2); PLATELET COUNT (AUTO) 148 K/uL (140-450); RED BLOOD CELL COUNT(AUTO) 2.82 MIL/uL (4.20-5.40); RED CELL DISTRIBUTION WIDTH 16.9 % (11.6-13.7); WHITE BLOOD COUNT (AUTO) 8.7 K/uL (4.8-10.8)
[2016-05-22] MEDS ORDERED: PANTOPRAZOLE 40 MG TABEC PO SCH ×2 (06:30→14:34)
[2016-05-22 07:04] LABS: ALBUMIN 2.5 g/dL (3.4-5.0); ANION GAP 8.7 (8-16); CALCIUM 7.7 mg/dL (8.5-10.1); CARBON DIOXIDE 29.2 mmol/L (21-32); CREATININE 0.8 mg/dL (0.6-1.3); POTASSIUM 3.9 mmol/L (3.5-5.1); TOTAL BILIRUBIN 0.4 mg/dL (0.0-1.0); TOTAL PROTEIN, SERUM 4.9 g/dL (6.4-8.2)
[2016-05-22] MEDS: ALBUTEROL 0.083% 2.5 MG/3 ML NEBU IH PRN (07:11)
--- NOTE | 2016-05-22 07:12 | NUR ---
ENDORSED PT IN STABLE CONDITION TO NATHAN Esteves ALL NEEDS HAVE BEEN MET AT THIS TIME.
--- NOTE | 2016-05-22 07:25 | NUR ---
RECEIVED PATIENT REPORT. PATIENT AWAKE, ALERT, AND ORIENTED. NO S/S OF DISTRESS NOTED. NO C/O OF PAIN AT THIS TIME. PATIENT ON ROOM AIR. NO SOB. BENDER CATHETER IN PLACE DRAINING CLEAR, YELLOW URINE. IV NOTED TO THE LEFT FA WITH IVF INFUSING WELL. PATIENT ON TELE MONITORING. BED LOWERED WITH CALL LIGHT WITHIN REACH. WILL CONTINUE TO MONITOR
[2016-05-22 08:00] VITALS: BP 116/74
[2016-05-22] MEDS: SOTALOL 80 MG TAB PO SCH (08:17)
[2016-05-22] MEDS: FERROUS SULFATE 325 MG TABEC PO SCH ×3 (08:17→16:44)
[2016-05-22] MEDS: ONDANSETRON 4 MG/2 ML VIAL IVP PRN (09:58)
--- NOTE | 2016-05-22 09:58 | NUR ---
PATIENT C/O NAUSEA. PRN ZOFRAN ADMINISTERED. WILL REASSESS
[2016-05-22] MEDS: NACL 0.9% 1,000 ML IV SCH (10:02)
[2016-05-22 12:00] VITALS: BP 122/76
--- NOTE | 2016-05-22 12:48 | NUR ---
PATIENT SEEN BY PHYSICAL THERAPIST. PATIENT ABLE TO AMBULATE USING A WALKER
--- NOTE | 2016-05-22 14:30 | NUR ---
PATIENT C/O OF HEARTBURN. DR DOVE NOTIFIED. ORDERS RECEIVED
[2016-05-22] MEDS: FERRIC GLUCONATE 125 MG in NACL 0.9% 100 ML IV SCH (14:48)
--- NOTE | 2016-05-22 15:17 | NUR ---
FAXED CONCURRENT REVIEW TO [facility] [phone] PHONE LIU [phone] I CALLED LIU AND INFORMED HER THE PLAN IS FOR THE PATIENT TO BE DISCHARGED WITH HOME HEALTH FOR PT, AND IF HB STABLE. ALSO, RECOMMEND WALKER FOR HOME. SHE SAID THE PATIENT WAS ALREADY GIVEN A WALKER BEFORE WHEN SHE HAD A FRACTURED HIP. THE NURSE WILL FOLLOW UP AND MAKE SURE PATIENT HAS A WALKER.
--- NOTE | 2016-05-22 15:33 | NUR ---
PATIENT STATES SHE HAS A READILY ACCESSIBLE WALKER AT HOME
[2016-05-22] MEDS ORDERED: PANT40EC PO (15:54)
[2016-05-22] MEDS ORDERED: FERR325E14 PO (15:54)
[2016-05-22] MEDS ORDERED: SOTA80TA PO (15:55)
[2016-05-22 16:00] VITALS: BP 118/71
--- NOTE | 2016-05-22 16:05 | NUR ---
RECEIVED A CALL FROM LIU FROM [facility] THROUGH [facility] [phone] auth [id number]. ROSS BRIGGSPRINTING PRESSMAN NURSE AWARE.
--- NOTE | 2016-05-22 16:24 | NUR ---
SPOKE WITH DR DOVE AND MADE HER AWARE OF PATIENT'S HEMOGLOBIN OF 9.0. STATES PATIENT IS OK FOR DISCHARGE
--- NOTE | 2016-05-22 16:30 | NUR ---
BENDER CATHETER DISCONTINUED
--- NOTE | 2016-05-22 17:30 | NUR ---
PATIENT AMBULATED TO THE BATHROOM TO VOID
[2016-05-22 18:40] VITALS: BP 105/79
--- NOTE | 2016-05-22 18:40 | NUR ---
PATIENT DISCHARGED TO HOME. DISCHARGE INSTRUCTIONS AND DISCHARGE PRESCRIPTIONS GIVEN. PATIENT VERBALIZED UNDERSTANDING. IV LINE DISCONTINUED. TELE LEADS TAKEN OFF. PATIENT SIGNED ALL HER DISCHARGE PAPERS. PATIENT LEFT WITH ALL HER BELONGINGS AND DISCHARGE PAPERS. PATIENT LEFT IN STABLE CONDITION
== END 2016-05-22 18:40 | disposition home health service (06) | DRG 378 ==
LOC: MED 18:33 → MTU 21:11
PROVIDERS: ADMIT Hospitalist; ATTEND Hospitalist
PROC: 30233N1 Transfusion of Nonautologous Red Blood Cells into Peripheral Vein, Percutaneous Approach (ICD-10-PCS; 2016-05-18)
PROC: 30233K1 Transfusion of Nonautologous Frozen Plasma into Peripheral Vein, Percutaneous Approach (ICD-10-PCS; 2016-05-19)
PROC: 30233L1 Transfusion of Nonautologous Fresh Plasma into Peripheral Vein, Percutaneous Approach (ICD-10-PCS; 2016-05-19)
PROC: 30233N1 Transfusion of Nonautologous Red Blood Cells into Peripheral Vein, Percutaneous Approach (ICD-10-PCS; 2016-05-20)
PROC: 0D568ZZ Destruction of Stomach, Via Natural or Artificial Opening Endoscopic (ICD-10-PCS; principal; 2016-05-20 11:00)
PROC: 0DB68ZX Excision of Stomach, Via Natural or Artificial Opening Endoscopic, Diagnostic (ICD-10-PCS; 2016-05-20 11:00)
PROC: 0DJD8ZZ Inspection of Lower Intestinal Tract, Via Natural or Artificial Opening Endoscopic (ICD-10-PCS; 2016-05-20 11:00)
DX: K25.4 Chronic or unspecified gastric ulcer with hemorrhage (principal); E87.2 Acidosis; D62 Acute posthemorrhagic anemia; J44.9 Chronic obstructive pulmonary disease, unspecified; T45.515A Adverse effect of anticoagulants, initial encounter; N18.9 Chronic kidney disease, unspecified; I12.9 Hypertensive chronic kidney disease with stage 1 through stage 4 chronic kidney disease, or unspecified chronic kidney disease; M19.90 Unspecified osteoarthritis, unspecified site; I48.2 Chronic atrial fibrillation; K57.30 Diverticulosis of large intestine without perforation or abscess without bleeding; K64.8 Other hemorrhoids; F17.210 Nicotine dependence, cigarettes, uncomplicated; Z95.0 Presence of cardiac pacemaker; Z88.0 Allergy status to penicillin; Z88.2 Allergy status to sulfonamides; Z79.01 Long term (current) use of anticoagulants
CPT/HCPCS: 36415; 51702; 70450; 71010; 80053; 81001; 83605; 83735; 83880; 84484; 85018; 85025; 85610; 85730; 86677; 86886; 86900; 86901; 86920; 87040; 87081; 87086; 93005; 94640; 94664; 96361; 96365; 97110; 97116; 97530; 99291; C1758; C9113; J0696; J1200; J1940; J2250; J2405; J2765; J2916; J3010; J3430; J3480; J3490; J7030; J7060; J7613; P9016; P9017; Q0092

== ENCOUNTER 2018-07-15 11:11 | Emergency (ER) | payer OTHER ==
[~2018-07-15] VITALS: Ht 157.5 cm; Wt 59.9 kg
[~2018-07-15 11:11] MED LIST: FERR325E14 PO; PANT40EC PO; SOTA80TA PO
[2018-07-15 11:19] VITALS: BP 131/87
--- NOTE | 2018-07-15 11:27 | NUR ---
72 Y FEMALE C/O ATYPICAL CP UNDER LT BREAST TO MIDSTERNAL INCREASES WITH BREATHING AND ARM MOVEMENT. PT UNABLE TO LIFT LT ARM ABOVE SHOULDER. PT REPORTS FALLING ON WEDNESDAY. DENIES HITTING HEAD, NO LOSS OF CONSCIOUSNESS. PAIN 10/. PALPABLE RADIAL PULSE. -ECCHYMOSIS. PT STATES SHE TOOK TRAMODOL BEFORE COMING INTO THE ER, STATES IT IS HARD TO BREATH BECAUSE OF THE PAIN. LUNGS CLEAR BILATERALLY. VSS AT THIS TIME. AA0X4. BED IS DOWN, LOCKED, BED RAIL X 1, ERMD NOTIFIED. MEDHX:PACEMAKER, A-FIB RX:LISINOPRIL, XANAX, HYDROCHLOROTHIAZIDE, TRAMADOL
--- NOTE | 2018-07-15 11:28 | NUR ---
Dr. Suazo evaluating patient at bedside.
--- NOTE | 2018-07-15 11:40 | NUR ---
PT TAKEN TO XRAY
--- NOTE | 2018-07-15 12:12 | NUR ---
PT AA0X4, SITTING UPRIGHT IN BED.
[2018-07-15 12:41] VITALS: BP 133/86
--- NOTE | 2018-07-15 12:41 | NUR ---
Patient discharged with v/s stable. Written and verbal after care instructions given and explained. Patient alert, oriented and verbalized understanding of instructions. Ambulatory with steady gait. All questions addressed prior to discharge. ID band removed. Patient advised to follow up with PMD. Rx of COLACE, PERCOCET, ZOFRAN given. Patient educated on indication of medication including possible reaction and side effects. Opportunity to ask questions provided and answered.
== END 2018-07-15 12:41 | disposition home or self-care (01) ==
LOC: MED 11:11
DX: S20.212A Contusion of left front wall of thorax, initial encounter (principal); I48.91 Unspecified atrial fibrillation; Z95.0 Presence of cardiac pacemaker; Z90.710 Acquired absence of both cervix and uterus; Z90.89 Acquired absence of other organs; Z79.899 Other long term (current) drug therapy; Z88.0 Allergy status to penicillin; Z96.643 Presence of artificial hip joint, bilateral; Z88.2 Allergy status to sulfonamides; W19.XXXA Unspecified fall, initial encounter; Y93.89 Activity, other specified; Y92.89 Other specified places as the place of occurrence of the external cause; Y99.8 Other external cause status
CPT/HCPCS: 71101; 99283